=== PATIENT | female | born 1980 | race Caucasian/White ===

== ENCOUNTER 2016-07-08 14:00 | Day surgery (SDC) | payer OTHER ==
[~2016-07-08] VITALS: Ht 165.1 cm; Wt 101.6 kg
[~2016-07-08 14:00] MED LIST: Biotin PO; CELEBREX200 MG PO; ERGOCALCIF50000 UNIT PO; MEDICAL MARIJUANA IH; RECTIV30 GM PR; THERAGRAN1 TABLET PO; TOPAMAX200 MG PO; VALIUM5 MG PO; VYVANSE40 MG PO; Vicodin,Norco 5/325 PO; WOMEN'S DAILY1 EAC4 PO
[2016-07-08 14:41] LABS: MCH 30.2 PG (29.0-34.0); MCHC 34.7 G/DL (30.0-36.0); MCV 87.2 FL (83-99); MEAN PLAT.VOLUME 9.9 uM^3 (9.5-12.4); PLATELET COUNT 313 K/uL (156-360); RBC DIS.WIDTH-CV 13.4 % (11.8-14.6); RBC DIS.WIDTH-SD 42.6 % (39-53); RED BLOOD COUNT 4.93 M/uL (3.80-5.20); WHITE BLOOD COUNT 9.5 K/uL (4.1-10.2)
[2016-07-08 14:56] LABS: ALKALINE PHOSPHATASE 104 IU/L (3-129); ANION GAP 11 MEQ/L (2-14); CHLORIDE 110 MEQ/L (99-109); GFR ESTIMATE (CALCULATED) > 59 mL/min/; GLUCOSE 95 mg/dL (70-99); POTASSIUM 3.8 MEQ/L (3.7-5.4); SAMPLE HEMOLYSIS CHECK 0; SAMPLE ICTERIC CHECK 0; SAMPLE LIPEMIA CHECK 0; SODIUM 142 MEQ/L (136-147); UREA NITROGEN (BUN) 12 mg/dL (9-23)
[2016-07-08 14:59] LABS: ADD MIUA? YES; BILIRUBIN NEGATIVE; BLOOD NEGATIVE; COLOR YELLOW ((YELLOW)); GLUCOSE (STRIP) NEGATIVE; KETONES NEGATIVE; LEUKOCYTES NEGATIVE; NITRITE NEGATIVE; PROTEIN (STRIP) NEGATIVE; SPECIFIC GRAVITY 1.016 (1.000-1.030); UROBILINOGEN 0.2 MG/DL (0.2-1.0)
[2016-07-08 15:13] VITALS: BP 126/71
[2016-07-08 15:25] LABS: BARBITUATES QUANT VALUE 0 NG/ML; BENZODIAZEPINES, URINE SCREEN POSITIVE (200 ng/mL); MARIJUANA QUANT VALUE 0 NG/ML; OPIATES QUANTITATIVE VALUE 0 NG/ML; PHENCYCLIDINE QUANT VALUE 0 NG/ML
[2016-07-08 15:29] LABS: TOTAL BILIRUBIN 0.4 MG/DL (0.0-1.0)
[2016-07-08 15:42] LABS: RED BLOOD CELLS 0-5 /HPF (0-5); WHITE BLOOD CELLS RARE /HPF (0-5)
[2016-07-08 15:43] LABS: BACTERIA 1+ /HPF; MUCUS 3+ /LPF
[2016-07-08 15:44] LABS: CASTS PRESENT /LPF; CRYSTALS NONE SEEN; EPITHELIAL CELLS 1+ /HPF; HYALINE CASTS 0-5 /LPF
[2016-07-09] MEDS ORDERED: RECTIV30 GM PR (00:32)
[2016-07-09] MEDS ORDERED: PERCOCET 5/31 TABLET PO (00:32)
[2016-07-09] MEDS ORDERED: COLACE100 MG PO (00:32)
[2016-07-09 02:50] VITALS: BP 125/70
== END 2016-07-09 07:11 | disposition home or self-care (01) ==
LOC: SDC 14:00 → 2SOUTH 07-09 00:05 → 2EAST 07-09 02:22
PROVIDERS: Surgery
PROC: 0D8R0ZZ Division of Anal Sphincter, Open Approach (ICD-10-PCS; principal; 2016-07-09)
DX: K60.1 Chronic anal fissure (principal); K62.89 Other specified diseases of anus and rectum; I10 Essential (primary) hypertension; E03.9 Hypothyroidism, unspecified; E66.01 Morbid (severe) obesity due to excess calories; Z68.38 Body mass index [BMI] 38.0-38.9, adult; I73.00 Raynaud's syndrome without gangrene; E55.9 Vitamin D deficiency, unspecified; Z98.84 Bariatric surgery status; Z83.3 Family history of diabetes mellitus; Z82.49 Family history of ischemic heart disease and other diseases of the circulatory system; Z80.3 Family history of malignant neoplasm of breast; Z88.8 Allergy status to other drugs, medicaments and biological substances; Z91.018 Allergy to other foods
CPT/HCPCS: 80053; 80306 90; 81003; 85027; 88305; G0378; J1170; J2250; J2405; J2710; J3010; J7120; S0030

== ENCOUNTER → 2016-08-20 | Outpatient (CLI) | payer OTHER ==
[~2016-08-20] MED LIST changes: +COLACE100 MG PO; +PERCOCET 5/31 TABLET PO
== END | disposition home or self-care (01) ==
LOC: CDC 15:34
DX: Z01.810 Encounter for preprocedural cardiovascular examination (principal); K64.4 Residual hemorrhoidal skin tags
CPT/HCPCS: 93000

== ENCOUNTER 2016-09-05 19:10 | Emergency (ER) | payer OTHER ==
[~2016-09-05] VITALS: Ht 162.6 cm; Wt 98.8 kg
[2016-09-05 20:14] LABS: HEMATOCRIT 37.4 % (36.0-46.0); MCH 29.7 PG (29.0-34.0); MCHC 33.4 G/DL (30.0-36.0); MCV 88.8 FL (83-99); MEAN PLAT.VOLUME 9.5 uM^3 (9.5-12.4); PLATELET COUNT 299 K/uL (156-360); RBC DIS.WIDTH-CV 12.7 % (11.8-14.6); RBC DIS.WIDTH-SD 40.7 % (39-53); RED BLOOD COUNT 4.21 M/uL (3.80-5.20)
[2016-09-05 20:18] LABS: WHITE BLOOD COUNT 9.9 K/uL (4.1-10.2)
[2016-09-05 20:40] LABS: CHLORIDE 111 mEq/L (99-109); POTASSIUM 3.9 mEq/L (3.7-5.4); SODIUM 140 mEq/L (136-147)
[2016-09-05 20:41] LABS: GLUCOSE 82 mg/dL (70-99)
[2016-09-05 20:43] LABS: ANION GAP 6 MEQ/L (2-14)
[2016-09-05 20:45] LABS: GFR ESTIMATE (CALCULATED) > 59 mL/min/
[2016-09-05 20:46] LABS: UREA NITROGEN (BUN) 12 mg/dL (9-23)
[2016-09-05 21:32] VITALS: BP 112/64
== END 2016-09-05 22:10 | disposition home or self-care (01) ==
LOC: EME 19:10
PROVIDERS: Emergency Medicine
DX: K62.5 Hemorrhage of anus and rectum (principal); I10 Essential (primary) hypertension; Z98.84 Bariatric surgery status
CPT/HCPCS: 80048; 85027; 86900; 86901; 99281; 99285